=== PATIENT | female | born 1990 | race Caucasian/White ===

== ENCOUNTER 2017-01-28 13:33 | Emergency (ER) | payer MEDICAID ==
[~2017-01-28] VITALS: Ht 154.9 cm; Wt 39.5 kg
[2017-01-28] MEDS ORDERED: DICY10CA13 (14:00)
[2017-01-28] MEDS ORDERED: VIBE1TAB PO (14:00)
[2017-01-28] MEDS ORDERED: PANTOPRAZOLE 40MG INJ (PROTONIX) (C9113) IV ONE (14:45)
[2017-01-28] MEDS ORDERED: ONDANSETRON 4MG/2ML VIAL (J2405) IV ONE (14:45)
[2017-01-28] MEDS ORDERED: SUCRALFATE 1 GM TAB PO ONE (14:45)
[2017-01-28] MEDS ORDERED: NS 1,000 ML IV ONE (14:45)
[2017-01-28 14:59] LABS: BASO # 0.2 K/mm3 (0.0-0.2); BASO % 1.5 % (0.0-1.0); EOS # 0.1 K/mm3 (0.0-0.50); EOS % 0.5 % (0.0-3.0); LARGE UNSTAINED CELL # 0.2 K/mm3 (0.0-0.4); LARGE UNSTAINED CELL % 1.9 % (0.0-4.0); LYMPH # 1.9 K/mm3 (1.5-6.5); LYMPH % 15.3 % (24.0-44.0); MEAN CORPUSCULAR HEMOGLOBIN 31.2 pg (27.0-33.0); MEAN CORPUSCULAR HGB CONC 33.9 g/dl (32.0-36.5); MONO # 0.8 K/mm3 (0.0-0.8); MONO % 6.3 % (0.0-5.0); NEUTROPHILS % 74.6 % (36.0-66.0); PLATELET COUNT, AUTOMATED 386 k/mm3 (150-450); RED CELL DISTRIBUTION WIDTH 12.3 % (11.5-14.5); WHITE BLOOD COUNT 12.1 K/mm3 (4.0-10.0)
[2017-01-28 15:06] LABS: INR 1.07
[2017-01-28 15:22] LABS: ALBUMIN 3.5 GM/DL (3.2-5.2); ALBUMIN/GLOBULIN RATIO 1.25 (1.00-1.93); ALKALINE PHOSPHATASE 69 U/L (45-117); ALT/SGPT 30 U/L (12-78); ANION GAP 2 MEQ/L (8-16); AST/SGOT 19 U/L (15-37); BILIRUBIN,DIRECT < 0.1 MG/DL (0.0-0.2); BILIRUBIN,TOTAL 0.3 MG/DL (0.2-1.0); BLOOD UREA NITROGEN 11 MG/DL (7-18); CALCIUM LEVEL 8.6 MG/DL (8.5-10.1); CARBON DIOXIDE LEVEL 26 MEQ/L (21-32); CHLORIDE LEVEL 110 MEQ/L (98-107); GLOMERULAR FILTRATION RATE > 60.0 (>60); GLUCOSE, FASTING 81 MG/DL (70-105); SODIUM LEVEL 138 MEQ/L (136-145); TOTAL PROTEIN 6.3 GM/DL (6.4-8.2)
[2017-01-28] MEDS ORDERED: FLAG500T PO (17:47)
[2017-01-28 17:56] VITALS: BP 114/68
== END 2017-01-28 18:03 | disposition home or self-care (01) ==
LOC: M ED 13:33
DX: A07.1 Giardiasis [lambliasis] (principal); R11.10 Vomiting, unspecified; F17.200 Nicotine dependence, unspecified, uncomplicated; Z79.899 Other long term (current) drug therapy
CPT/HCPCS: 80048; 80076; 83605; 83690; 85025; 85610; 87507; 96361; 96374; 96375; 99283; C9113; J2405